=== PATIENT | female | born 1965 | race Caucasian/White ===

== ENCOUNTER 2018-04-07 09:02 | Outpatient (REF) | payer BC, SELFPAY ==
[2018-04-07 21:40] LABS: Anion Gap 8.2 mmol/L (3-11); BUN 11 mg/dL (7-18); CO2 25.8 mmol/L (21.0-32.0); CREATININE 0.68 mg/dL (0.55-1.02); Calcium 8.6 mg/dL (8.5-10.1); Chloride 104 mmol/L (98-107); Cholesterol 206 mg/dL (50-200); Glucose 103 mg/dL (70-100); HDL Cholesterol 92 mg/dL (40-60); LDL CHOLESTEROL 106 mg/dL (<100); Sodium 138 mmol/L (136-145); Triglyceride 56 mg/dL (30-150)
== END 2018-04-07 09:03 ==
LOC: NCHCN 09:02
PROVIDERS: PCP Family Medicine; Visit Provider Registered Nurse
DX: R56.9 Unspecified convulsions (principal); R10.9 Unspecified abdominal pain
CPT/HCPCS: 80048; 80061; 83721

== ENCOUNTER 2020-03-16 01:57 | Outpatient (CLI) | payer BC, SELFPAY ==
[2020-03-19 14:49] LABS: Alternaria Tenuis IgE <0.35 kU/L; Aspergillus Fumigatus IgE <0.35 kU/L; Bermuda Grass IgE <0.35 kU/L; Cockroach IgE <0.35 kU/L; Cottonwood IgE <0.35 kU/L; D Farinae IgE <0.35 kU/L; D Pteronyssinus IgE <0.35 kU/L; Eastern Sycamore IgE <0.35 kU/L; Elm IgE <0.35 kU/L; Epicoccum purpurascens IgE <0.35 kU/L; Giant Ragweed IgE <0.35 kU/L; Oak IgE <0.35 kU/L; Penicillium chrysogenum IgE <0.35 kU/L; Red Sorrel IgE <0.35 kU/L; Rough Pigweed IgE <0.35 kU/L; Silver Birch IgE <0.35 kU/L; Stemphyllium IgE <0.35 kU/L; Walnut Tree IgE <0.35 kU/L
[2020-03-19 14:54] LABS: Cat Epithelium IgE <0.35 kU/L; Cladosporium IgE <0.35 kU/L; Cocklebur IgE <0.35 kU/L; Dog Dander IgE <0.35 kU/L; Lamb's Quarter IgE <0.35 kU/L; Short Ragweed IgE <0.35 kU/L; Timothy Grass IgE <0.35 kU/L; Wormwood IgE <0.35 kU/L
[2020-03-21 17:35] LABS: CLASS 0; Cedar Red IgE <0.10 kU/L (<0.35); Fusarium oxysporum/vasinfectum <0.35 kU/L (<0.35); Rhodotorula IgE <0.35 kU/L (<0.35)
== END 2020-03-16 02:17 ==
PROVIDERS: PCP Family Medicine; Visit Provider Otolaryngology Otolaryngology/Facial Plastic Surgery
DX: R53.82 Chronic fatigue, unspecified (principal); J30.9 Allergic rhinitis, unspecified
CPT/HCPCS: 36415; 86003

== ENCOUNTER 2020-06-15 21:51 | Outpatient (REF) | payer BC, SELFPAY ==
[2020-06-20 14:27] LABS: SARS-CoV-2 RNA Undetected (Undetected)
== END 2020-06-15 22:11 ==
LOC: NCHCN 21:51
PROVIDERS: PCP Family Medicine; Visit Provider Family Medicine
DX: R05 Cough (principal)
CPT/HCPCS: U0003

== ENCOUNTER 2020-10-25 18:45 | Outpatient (REF) | payer BC, SELFPAY ==
[2020-10-25 20:46] LABS: Anion Gap 11.4 mmol/L (3-11); BUN 12 mg/dL (7-18); CO2 26.6 mmol/L (21.0-32.0); CREATININE 0.6 mg/dL (0.55-1.02); Calcium 8.5 mg/dL (8.5-10.1); Chloride 90 mmol/L (98-107); Glucose 88 mg/dL (74-106); Magnesium 1.9 mg/dL (1.8-2.4); Potassium 3.5 mmol/L (3.5-5.1); Sodium 128 mmol/L (136-145); TSH (W/Ref FT4) 1.48 uIU/mL (0.36-3.74)
== END 2020-10-25 18:46 | disposition home or self-care (01) ==
LOC: NCHCN 18:45
PROVIDERS: PCP Family Medicine; Visit Provider Registered Nurse
DX: R00.2 Palpitations (principal)
CPT/HCPCS: 80048; 83735; 84443

== ENCOUNTER 2020-12-28 16:02 | Outpatient (REF) | payer BC, SELFPAY ==
[2020-12-28 20:49] LABS: Anion Gap 11.2 mmol/L (3-11); BUN 13 mg/dL (7-18); CO2 24.8 mmol/L (21.0-32.0); CREATININE 0.5 mg/dL (0.55-1.02); Calcium 8.7 mg/dL (8.5-10.1); Chloride 95 mmol/L (98-107); Glucose 94 mg/dL (74-106); Potassium 4.4 mmol/L (3.5-5.1); Sodium 131 mmol/L (136-145)
== END 2020-12-28 16:03 | disposition home or self-care (01) ==
LOC: NCHCN 16:02
PROVIDERS: PCP Family Medicine; Visit Provider Family Medicine
DX: Z00.00 Encounter for general adult medical examination without abnormal findings (principal); R56.9 Unspecified convulsions
CPT/HCPCS: 80048

== ENCOUNTER 2021-01-29 16:52 | Outpatient (REF) | payer BC, SELFPAY ==
--- NOTE | 2021-01-29 16:00 | PAPFT_PTH ---
PATIENT: Corinne Anderson LOC: [facility]#:[id number] AGE/SX: 55/F ROOM: RE01/29/[address]: Lewis Quiñonez : 1965 BED: DIS: 01/29/2021 SPEC #: [id number] RECD: 01/30/21 13:07 STATUS: JONELLE REStanley #: [id number] JAMES: 01/29/21 16:[address]: Lewis Quiñonez DEPT: [facility] Cytology RECD BY: Ivana Zepeda Tissues: 1 - CX/ENDOCX FOR PAP SMEARS Procedures: PAP THIN PREP/[facility] Screening HPV DNA PROBE Comments: [id number]
[2021-01-29 21:07] LABS: Anion Gap 6.5 mmol/L (3-11); BUN 14 mg/dL (7-18); CO2 28.5 mmol/L (21.0-32.0); CREATININE 0.6 mg/dL (0.55-1.02); Calcium 8.6 mg/dL (8.5-10.1); Chloride 94 mmol/L (98-107); Glucose 96 mg/dL (74-106); Potassium 4.4 mmol/L (3.5-5.1); Sodium 129 mmol/L (136-145)
== END 2021-01-29 16:53 | disposition home or self-care (01) ==
LOC: NCHCN 16:52
PROVIDERS: PCP Family Medicine; Visit Provider Family Medicine
DX: E87.1 Hypo-osmolality and hyponatremia (principal); Z00.00 Encounter for general adult medical examination without abnormal findings; Z12.4 Encounter for screening for malignant neoplasm of cervix; Z11.51 Encounter for screening for human papillomavirus (HPV)
CPT/HCPCS: 80048; 88142; 87624

== ENCOUNTER 2022-04-16 16:49 | Outpatient (REF) | payer BC, SELFPAY ==
[2022-04-16 18:04] LABS: ALT 33 U/L (14-59); Albumin 4.1 g/dL (3.4-5.0); BUN 15 mg/dL (7-18); Chloride 103 mmol/L (98-107); Potassium 4.6 mmol/L (3.5-5.1); Sodium 139 mmol/L (136-145)
[2022-04-16 18:13] LABS: Abs Immature Grans 0.02 10^3/uL (0.0-0.06); Absolute Basophil Count 0.03 10^3/uL (0.0-0.2); Absolute Eosinophil Count 0.07 10^3/uL (0.0-0.7); Absolute Lymphocyte Count 2.14 10^3/uL (1.2-3.4); Absolute Monocyte Count 0.53 10^3/uL (0.1-0.8); Absolute Neutrophil Count 3.16 10^3/uL (1.2-6.7); Basophils % 0.5; Eosinophils % 1.2; HCT 40.6 % (36.0-46.0); HGB 13.5 g/dL (11.2-15.7); Immature Grans % 0.3; MCH 29.8 pg (27.0-33.0); MCHC 33.3 % (32.0-36.0); MCV 90 fL (80-95); MPV 9.6 fL (8.0-11.0); Monocytes % 8.9; Neutrophils % 53.1; Platelet Count 291 10^3/uL (130-400); RBC 4.53 10^6/uL (3.93-5.22); RDW 12.9 % (11.7-14.6); RDW-SD 42.9 fL; WBC 5.95 10^3/uL (4.4-10.8)
[2022-04-16 18:28] LABS: AST 26 U/L (15-37); Alkaline Phosphatase 74 U/L (46-116); Anion Gap 9.2 mmol/L (3-11); Bilirubin, Total 0.5 mg/dL (0.2-1.0); CO2 26.8 mmol/L (21.0-32.0); CREATININE 0.7 mg/dL (0.55-1.02); Estimated GFR 101.44 (mL/min/1.73m2); Glucose 118 mg/dL (74-106); TSH 1.67 uIU/mL (0.36-3.74); Total Protein 7.3 g/dL (6.4-8.2)
== END 2022-04-16 16:50 | disposition home or self-care (01) ==
LOC: NCHCN 16:49
PROVIDERS: PCP Family Medicine; Visit Provider Family Medicine
DX: I10 Essential (primary) hypertension (principal); R53.83 Other fatigue; G47.33 Obstructive sleep apnea (adult) (pediatric)
CPT/HCPCS: 80053; 84443; 85025

== ENCOUNTER 2023-06-03 13:58 | Outpatient (REF) | payer BC, SELFPAY ==
[2023-06-03 14:09] LABS: HCT 41.3 % (36.0-46.0); HGB 13.8 g/dL (11.2-15.7); MCH 29.6 pg (27.0-33.0); MCHC 33.4 % (32.0-36.0); MCV 88 fL (80-95); MPV 9.3 fL (8.0-11.0); Platelet Count 287 10^3/uL (130-400); RBC 4.67 10^6/uL (3.93-5.22); RDW 12.7 % (11.7-14.6); RDW-SD 41.1 fL; WBC 4.65 10^3/uL (4.4-10.8)
[2023-06-03 14:41] LABS: Vitamin D 25 Total 50.3 ng/mL (30-100)
[2023-06-03 14:49] LABS: ALT 27 U/L (14-59); AST 21 U/L (15-37); Alkaline Phosphatase 76 U/L (46-116); Anion Gap 7.4 mmol/L (3-11); BUN 12 mg/dL (7-18); Bilirubin, Total 0.4 mg/dL (0.2-1.0); CO2 28.6 mmol/L (21.0-32.0); CREATININE 0.9 mg/dL (0.55-1.02); Calcium 9.6 mg/dL (8.5-10.1); Chloride 103 mmol/L (98-107); Estimated GFR 74.57 (mL/min/1.73m2); Glucose 100 mg/dL (74-106); Potassium 4.6 mmol/L (3.5-5.1); Sodium 139 mmol/L (136-145); TSH (W/Ref FT4) 1.65 uIU/mL (0.36-3.74); Total Protein 7.5 g/dL (6.4-8.2); Vitamin B12 661 pg/mL (193-986)
== END 2023-06-03 13:59 | disposition home or self-care (01) ==
LOC: NCHCN 13:58
PROVIDERS: PCP Family Medicine; Visit Provider Family Medicine
DX: Q27.30 Arteriovenous malformation, site unspecified (principal); I61.9 Nontraumatic intracerebral hemorrhage, unspecified; R53.83 Other fatigue; E55.9 Vitamin D deficiency, unspecified; G40.901 Epilepsy, unspecified, not intractable, with status epilepticus
CPT/HCPCS: 80053; 82306; 85027; 82607; 84443